=== PATIENT | female | born 1980 | race Two or more races ===

== ENCOUNTER 2022-12-23 11:14 | Emergency (ER) | payer OTHER ==
[~2022-12-23] VITALS: Ht 157.5 cm; Wt 59.9 kg
[2022-12-23] MEDS ORDERED: GABAPENTIN400 MG PO (11:43)
== END 2022-12-23 14:20 | disposition home or self-care (01) ==
LOC: ER 11:14
DX: M54.9 Dorsalgia, unspecified (principal); Z91.018 Allergy to other foods